=== PATIENT | female | born 2000 | race Two or more races ===

== ENCOUNTER 2021-08-24 10:45 | Emergency (ER) | payer OTHER ==
[~2021-08-24] VITALS: Ht 162.6 cm; Wt 86.2 kg
[2021-08-24] MEDS ORDERED: OCUFLOX5 M9 LEFTEAR (11:21)
== END 2021-08-24 12:31 | disposition home or self-care (01) ==
LOC: ER 10:45
DX: H60.92 Unspecified otitis externa, left ear (principal)
CPT/HCPCS: 99282